=== PATIENT | male | born 1950 | race Caucasian/White ===

== ENCOUNTER 2016-08-02 21:43 | Emergency (ER) | payer OTHER, MEDICARE ==
[2016-08-02] MEDS ORDERED: Morphine 10 MG/ML Syringe SUBCUT SCH (22:15)
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
[2016-08-02] MEDS ORDERED: Acetaminophen/oxyCODONE 325-10 MG Tab PO ONE (23:57)
[2016-08-03 05:00] VITALS: BP 139/82
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
--- NOTE | 2016-08-03 16:17 | CR ---
EXAM DATE: 08/02/16 PATIENT'S AGE: 66 Patient: CHRISTIANE MILTON Facility: [place], [place] Site . Site : 1950 Study: XRay Chest [id number]/30/2017 11:25:25 PM Ordering Physician: Celio Crocker Final Report: INDICATION: chest injury TECHNIQUE: Chest radiograph 2 views COMPARISON: None FINDINGS: Cardiovascular and mediastinum: The cardiac silhouette is normal in appearance and size. Mediastinum is within normal limits. Lungs and pleural spaces: Both lungs are unremarkable in appearance. No sign of pleural effusion. No pneumothorax is seen. The lateral view is limited by the patient`s inability to lift the arms. Bones and soft tissues: Widened appearance of the left AC joint seen, likely from prior surgery. IMPRESSION: No acute cardiopulmonary disease seen. Dictated by: Omar Sousa MD @ 08/02/2016 23:31:23 (Electronic Signature) Report Signed by Proxy and Original Signed Document filed in the Medical Record. [facility]
--- NOTE | 2016-08-03 16:18 | CR ---
EXAM DATE: 08/02/16 PATIENT'S AGE: 66 Patient: CHRISTIANE MILTON Facility: [place], [place] Site . Site : 1950 Study: XRay Chest Left ribs [id number]/30/2017 11:25:48 PM Ordering Physician: Celio Crocker Final Report: INDICATION: chest injury TECHNIQUE: Rib radiograph 4 views left COMPARISON: None FINDINGS: Nondisplaced fracture of the left 3rd rib identified. No osseous rib lesions noted. The visualized lungs and pleural space are unremarkable. No pneumothorax is seen. IMPRESSION: Nondisplaced fracture of the left 3rd rib identified. Dictated by: Omar Sousa MD @ 08/02/2016 23:33:54 (Electronic Signature) Report Signed by Proxy and Original Signed Document filed in the Medical Record. [facility]
--- NOTE | 2016-08-03 16:19 | CR ---
EXAM DATE: 08/02/16 PATIENT'S AGE: 66 Patient: CHRISTIANE MILTON Facility: [place], [place] Site . Site : 1950 Study: XRay Shoulder Left [id number]/30/2017 11:26:10 PM Ordering Physician: Celio Crocker Final Report: INDICATION: shoulder injury TECHNIQUE: Shoulder radiograph 2 views left COMPARISON: None FINDINGS: Bones: Alignment is normal. No acute fractures or aggressive bone lesions identified. Joint spaces: The glenohumeral joint is unremarkable in appearance. The acromioclavicular (AC) joint is unremarkable. No radiographic evidence of a shoulder effusion is seen. Soft tissues: The visualized hemithorax is unremarkable. No radiopaque foreign bodies are seen. IMPRESSION: No acute osseous injuries are noted. Dictated by: Omar Sousa MD @ 08/02/2016 23:34:36 (Electronic Signature) Report Signed by Proxy and Original Signed Document filed in the Medical Record. [facility]
== END 2016-08-03 00:11 | disposition home or self-care (01) ==
LOC: MW.ED 21:43
DX: S22.32XA Fracture of one rib, left side, initial encounter for closed fracture (principal); I10 Essential (primary) hypertension; V19.9XXA Pedal cyclist (driver) (passenger) injured in unspecified traffic accident, initial encounter
CPT/HCPCS: 71020; 71100; 71120; 73030; 93005; 96372; 99284; A9270; J2270